=== PATIENT | male | born 1940 | race Caucasian/White ===

== ENCOUNTER → 2017-10-19 | Outpatient (CLI) | payer MEDICARE, BC ==
[~2017-10-19] MED LIST: ISOVUE-370 76% 100ML VIAL (Q9967) As Ordered
== END ==
LOC: M RAD 08:57
DX: R91.8 Other nonspecific abnormal finding of lung field (principal); I70.0 Atherosclerosis of aorta
CPT/HCPCS: Q9967

== ENCOUNTER → 2017-11-06 | Outpatient (CLI) | payer MEDICARE ==
[2017-11-06 18:54] LABS: BASO # 0.1 10^3/uL (0.0-0.2); BASO % 1.1 % (0.0-1.0); EOS # 0.2 10^3/uL (0.0-0.50); EOS % 2.4 % (0.0-3.0); HEMATOCRIT 44.2 % (42.0-52.0); HEMOGLOBIN 14.3 g/dl (13.5-17.5); IMMATURE GRANULOCYTE % 0.3 % (0-3.0); LYMPH # 2.2 10^3/uL (1.5-4.5); LYMPH % 34.9 % (24.0-44.0); MEAN CORPUSCULAR HEMOGLOBIN 32.4 pg (27.0-33.0); MEAN CORPUSCULAR HGB CONC 32.4 g/dl (32.0-36.5); MONO # 0.5 10^3/uL (0.0-0.8); MONO % 8.3 % (0.0-5.0); NEUTROPHILS # 3.3 10^3/uL (1.8-7.7); PLATELET COUNT, AUTOMATED 224 10^3/uL (150-450); RED BLOOD COUNT 4.42 10^6/uL (4.30-6.10); RED CELL DISTRIBUTION WIDTH 13.7 % (11.5-14.5); WHITE BLOOD COUNT 6.3 10^3/uL (4.0-10.0)
[2017-11-06 19:06] LABS: D-DIMER QUANT 788.4 ng/ml (<500)
[2017-11-11 00:06] LABS: HISTOPLASMOSIS ANTIBODY Negative (Neg:<1:1)
[2017-11-11 00:06] LABS: ASPERGILLUS FLAVUS ABY Negative (Neg:<1:1); ASPERGILLUS FUMIGATUS ABY Negative (Neg:<1:1); ASPERGILLUS NIGER ABY Negative (Neg:<1:1); BLASTOMYCES ANTIBODY LEVEL Negative (Neg:<1:1); COCCIDIOMYCOSIS ANTIBODY 0.5 IV (<=0.9); CRYPTOCOCCUS ANTIGEN SER Negative (Negative); QUANTIFERON GOLD TB Negative (Negative); TB Test (QFT) Antigen 0.06 IU/mL (.); TB Test (QFT) Antigen Minus Ni <0.01 IU/mL (.); TB Test (QFT) Mitogen 8.35 IU/mL (.); TB Test (QFT) Nil 0.08 IU/mL (.)
== END ==
LOC: M SMT 14:52
DX: R91.8 Other nonspecific abnormal finding of lung field (principal)
CPT/HCPCS: 86606

== ENCOUNTER → 2017-11-10 | Outpatient (CLI) | payer MEDICARE ==
[2017-11-10 19:32] LABS: BLOOD UREA NITROGEN 22 MG/DL (7-18)
[2017-11-10 19:32] LABS: CREATININE FOR GFR 1.38 MG/DL (0.70-1.30); GLOMERULAR FILTRATION RATE 53.2 (>42)
== END ==
LOC: M WUC 16:37
DX: R06.00 Dyspnea, unspecified (principal); R91.8 Other nonspecific abnormal finding of lung field
CPT/HCPCS: 82565

== ENCOUNTER → 2017-11-13 | Outpatient (CLI) | payer MEDICARE | LOC: M RAD 08:00 | DX: R79.1 Abnormal coagulation profile (principal); R06.00 Dyspnea, unspecified; R91.8 Other nonspecific abnormal finding of lung field | CPT/HCPCS: Q9967 ==

== ENCOUNTER → 2023-08-29 | Outpatient (CLI) | payer MEDICARE | LOC: M WUC 11:06 | PROVIDERS: ATTEND Nurse Practitioner Family | DX: M25.552 Pain in left hip (principal); M16.12 Unilateral primary osteoarthritis, left hip ==

== ENCOUNTER → 2024-10-14 | Outpatient (REF) | payer MEDICARE ==
[2024-10-14 18:44] LABS: VITAMIN B12 LEVEL 771.0 PG/ML (211-911)
== END ==
LOC: M LAB REF 17:26
PROVIDERS: ATTEND Internal Medicine
DX: G60.9 Hereditary and idiopathic neuropathy, unspecified (principal); J44.9 Chronic obstructive pulmonary disease, unspecified